=== PATIENT | female | born 1980 | race Caucasian/White ===

== ENCOUNTER 2016-12-29 11:35 | Emergency (ER) | payer SELFPAY | END 2016-12-29 12:01 | disposition left against medical advice (07) | LOC: CED 11:35 | DX: Z53.21 Procedure and treatment not carried out due to patient leaving prior to being seen by health care provider (principal) ==

== ENCOUNTER 2018-04-21 19:56 | Emergency (ER) | payer SELFPAY ==
[2018-04-21] MEDS ORDERED: LIDOCAINE 2% JELLY 20 ML (UROJECT) ONE (22:09)
[2018-04-21] MEDS ORDERED: fentaNYL 100 MCG/2 ML INJ IVP ONE (22:17)
[2018-04-21] MEDS ORDERED: KETOROLAC 15 MG/1 ML SDV IVP ONE (22:17)
--- NOTE | 2018-04-21 22:21 | EDPHY ---
H & P Stated Complaint: culposcopy done today, since increasing pain/swelling in groin /vag Time Seen by Provider: 04/21/18 21:26 HPI/ROS: HPI The patient presents with vaginal pain and swelling which has been present for the last approximately 8 hr after [facility] about [facility]:30 a.m.. The patient had a Pap smear revealing some abnormal cells and there were biopsies taken from 2 locations in her cervix. The procedure was uncomplicated she reports. She had a small amount of brownish discharge several hours after the procedure. She then felt swelling and pain in her vagina which has gotten progressively worse. She is unable to insert 1-2 fingers into her vaginal vault. She is able to urinate without difficulty. She has had no ongoing discharge. She has no history of similar. She denies any significant external swelling of her labia. She did go on a long bicycle ride yesterday.. REVIEW OF SYSTEMS Constitutional: No fever, no chills. Eyes: No discharge. ENT: No sore throat. Cardiovascular: No chest pain, no palpitations. Respiratory: No cough, no shortness of breath. Gastrointestinal: No abdominal pain, no vomiting. Genitourinary: No hematuria. Musculoskeletal: No back pain. Skin: No rashes. Neurological: No headache. PMHx: History of abnormal cervical cells, Soc Hx: FHx: PHYSICAL General Appearance: Alert, no distress Eyes: Pupils equal and round no pallor or injection ENT, Mouth: Mucous membranes moist Respiratory: There are no retractions, lungs are clear to auscultation Cardiovascular: Regular rate and rhythm Gastrointestinal: Abdomen is soft and non-tender, no masses, bowel sounds normal Pelvic: Labia are unremarkable, pain upon insertion of the speculum, there is diffuse edema of the vaginal becerra without any erythema, cervix has 2 areas which are dark with likely granulation tissue, there is no active bleeding Neurological: A&O, moves all extremities Skin: Warm and dry, no rashes Musculoskeletal: Neck is supple non tender Extremities: symmetrical, full range of motion Psychiatric: Patient is oriented X 3, there is no agitation Source: Patient Exam Limitations: No limitations - Medical/Surgical History Hx Asthma: Yes Hx Chronic Respiratory Disease: No Hx Diabetes: No Hx Cardiac Disease: No Hx Renal Disease: No Hx Cirrhosis: No Hx Alcoholism: No Hx HIV/AIDS: No Hx Splenectomy or Spleen Trauma: No Other PMH: endometriosis, cervical freezing, ptsd, asthma, culposcopy - Social History Smoking Status: Never smoked Constitutional: Initial Vital Signs Temperature (C) 36.7 C 04/21/18 20:05 Heart Rate 84 04/21/18 20:05 Respiratory Rate 16 04/21/18 20:05 Blood Pressure 113/87 H 04/21/18 20:05 O2 Sat (%) 99 04/21/18 20:05 O2 Delivery Mode Room Air Allergies/Adverse Reactions: avocado Allergy (Verified 04/21/18 20:10) Milk Containing Products [dairy] Allergy (Verified 04/21/18 20:10) soy Allergy (Verified 04/21/18 20:10) Sulfa (Sulfonamide Antibiotics) Allergy (Verified 04/21/18 20:10) wheat Allergy (Verified 04/21/18 20:10) Home Medications: Medication Instructions Recorded Flexeril 10 MG (*) 04/21/18 Medical Decision Making Differential Diagnosis: This is a 37-year-old female who had a colposcopy performed earlier today with 2 biopsies taken who now presents with progressive pelvic pain and fullness, not improved with ibuprofen at home. On exam, her vaginal vault is edematous without any erythema or areas of fluctuance that I can appreciate. Her cervix is non erythematous, there is no discharge from the office, there are 2 areas that are status post biopsy that appear to be healing properly. The cause of her symptoms could be allergic reaction to chemical used during procedure. I doubt any infection based on exam. I doubt any hematoma based on diffuse nature of symptoms. I consulted with the OBGYN convenience store clerk Dr. Garcia. He does report ascetic acid and Monsel's solution as are use during these procedures though usually do not cause allergy. He agrees that the patient should continue anti-inflammatories for now. She is able to urinate without difficulty and there is no sign of urinary tract obstruction. She will discharge home with follow up with his office if she continues to have symptoms tomorrow. I presented this plan to the patient who at this point is quite frustrated because of the diagnostic uncertainty that is present. She would like to have more answers, and wonders if there is a specialist within OBGYN that she could see. I advised her [facility] or with our on- call providers. I do not feel that there is any emergent condition that we are missing in this case and I feel comfortable sending her home - Data Points Medications Given: Discontinued Medications Fentanyl (Sublimaze) 50 mcg IVP EDNOW ONE Stop: 04/21/18 22:18 Last Admin: 04/21/18 22:41 Dose: 50 mcg Ketorolac Tromethamine (Toradol) 15 mg IVP EDNOW ONE Stop: 04/21/18 22:18 Last Admin: 04/21/18 22:40 Dose: 15 mg Departure - Departure Disposition: Home, Routine, Self-Care Clinical Impression: Vaginal wall edema after colposcopy Condition: Good Instructions: General Allergic Reaction (ED) Additional Instructions: I recommend you take ibuprofen 400 mg every 6 hr. You can also take Benadryl 25 mg every 6 hr in addition to this. You should return to the emergency department if you have any difficulty urinating. I have discussed her case with Dr. Rousseau our OBGYN. You can call his office for follow-up in the morning if your symptoms persist. [facility] can also [facility] with [facility]. The solution that was probably use during your procedure is called Monsel's solution. Referrals: NEELIMA WALLACE [Other] - As per Instructions Asa Garcia MD [Medical Doctor] - As per Instructions
[2018-04-21 23:37] VITALS: BP 109/83
== END 2018-04-21 23:36 | disposition home or self-care (01) ==
DX: N90.89 Other specified noninflammatory disorders of vulva and perineum (principal); J45.909 Unspecified asthma, uncomplicated
CPT/HCPCS: 96374; J1885; J3010